=== PATIENT | female | born 1970 | race Caucasian/White ===

== ENCOUNTER 2018-06-10 07:43 | Inpatient (IN) | payer BC ==
[~2018-06-10 07:43] MED LIST: Buffered Lidocaine 0.9% SYRIN* 5 ML/SYR SYRINGE INTRADERM ONE
[2018-06-10] MEDS ORDERED: ceFAZolin 1 GM in Dextrose (*) 1 GM/50 ML BAG IVPB ONE (07:52)
[2018-06-10] MEDS ORDERED: ceFAZolin 2 GM PREMIX (*) 2 GM/50 ML BAG IVPB ONE (07:52)
[2018-06-10] MEDS ORDERED: Heparin VIAL(*) 5000 UNITS/ML VIAL (FIVE THOUSAND) ONE ×2 (07:52→15:30)
[2018-06-10] MEDS ORDERED: Bupivacaine 0.25% W/EPI* 10 ML SDV ONE ×2 (10:26→11:39)
[2018-06-10] MEDS ORDERED: Methylene Blue 0.5 %* 50 MG/10 ML AMP IV ONE (10:26)
[2018-06-10] MEDS ORDERED: Succinylcholine* 20 MG/ML 10 ML VIAL ONE ×2 (10:38→12:11)
[2018-06-10] MEDS ORDERED: Rocuronium* 10 MG/ML VIAL ONE ×2 (10:38→12:10)
[2018-06-10] MEDS ORDERED: Propofol* 10 MG/ML 20 ML BTL IV PUSH ONE (10:38)
[2018-06-10] MEDS ORDERED: fentaNYL* 50 MCG/ML 2 ML VIAL (100 MCG VIAL) ONE (10:38)
[2018-06-10] MEDS ORDERED: Lidocaine 2% PF * 5 ML VIAL ONE (10:38)
[2018-06-10] MEDS ORDERED: Midazolam* 1 MG/ML 2 ML VIAL (2 MG) ONE (10:55)
[2018-06-10] MEDS ORDERED: Dexamethasone IV* 4 MG/ML 1 ML (4 MG) ONE (11:05)
[2018-06-10] MEDS ORDERED: Acetaminophen TAB* 325 MG PO PRN (11:49)
[2018-06-10] MEDS ORDERED: DiMENhydriNATE IV* 50 MG/ML VIAL IV PUSH PRN (11:49)
[2018-06-10] MEDS ORDERED: Naloxone* 0.4 MG/ML 1 ML VIAL IV PRN (11:49)
[2018-06-10] MEDS ORDERED: HYDROmorphone INJ* 0.5 MG/0.5 ML SYRINGE ONE ×4 (11:51→15:30)
[2018-06-10] MEDS ORDERED: Ondansetron INJ* 2 MG/ML VIAL ONE ×2 (11:51→13:52)
[2018-06-10] MEDS ORDERED: Glycopyrrolate IV* 0.2 MG/ML 1 ML VIAL ONE (13:49)
[2018-06-10] MEDS ORDERED: Neostigmine Methylsulfate* 2 MG/2 ML SYRINGE ONE (13:49)
[2018-06-10] MEDS ORDERED: Acetaminophen ADULT LIQ* 650 MG/20.3 ML UDC PO PRN (13:56)
[2018-06-10] MEDS ORDERED: HYDROcodone/ACET. 7.5/325 LIQ* 15 ML UDC PO PRN (13:56)
[2018-06-10] MEDS ORDERED: diPHENhydraMINE IV* 50 MG/ML 1 ml VIAL (BENADRYL) SLOW PUSH PRN (13:56)
--- NOTE | 2018-06-10 13:56 | BRIEFOPN ---
Brief Operative Note - Surgery Procedures: Pre-OP Diagnoses: Clinically severe obesity Post-op Diagnosis: same Procedure: Laparoscopic Uzair an Y gastric bypass Surgeon: Jennifer Asst: Markus Anethesia: KOFFI EBL: minimal IVF: 1200cc LR Specimen: none Drains: none
[2018-06-10] MEDS ORDERED: DiMENhydriNATE IV* 50 MG/ML VIAL ONE (14:12)
[2018-06-10] MEDS: HYDROmorphone INJ* 0.5 MG/0.5 ML SYRINGE IV PRN ×2 (14:18→14:31)
[2018-06-10] MEDS: Heparin VIAL(*) 5000 UNITS/ML VIAL (FIVE THOUSAND) SUBCUT SCH ×2 (15:30→22:34)
[2018-06-10] MEDS: HYDROmorphone INJ* 2 MG/ML CARPUJECT SYRINGE IV PRN ×2 (15:30→20:02)
[2018-06-10] MEDS: Ondansetron INJ* 2 MG/ML VIAL IV PRN (16:40)
[2018-06-10] MEDS: Ketorolac INJ* 30 MG/ML 1 ML VIAL IV PRN ×2 (17:05→22:34)
[2018-06-10] MEDS: Famotidine IV* 10 MG/ML 2 ML (20 mg) IV SLOW PU SCH (20:02)
[2018-06-11] MEDS: HYDROmorphone INJ* 0.5 MG/0.5 ML SYRINGE IV PRN ×4 (03:04→21:15)
[2018-06-11] MEDS: Ketorolac INJ* 30 MG/ML 1 ML VIAL IV PRN ×3 (05:30→18:00)
[2018-06-11] MEDS: Heparin VIAL(*) 5000 UNITS/ML VIAL (FIVE THOUSAND) SUBCUT SCH ×3 (05:31→21:17)
--- NOTE | 2018-06-11 07:20 | OP ---
CC: [facility]; Dr. Irasema Wynne; Dr. Narinder Ramirez; Dr. Tucker Menendez; Dr. Ever Davis, Pulmonology in [place], [place], [address] OPERATIVE REPORT: DATE OF OPERATION: 06/10/18 DATE OF : 06/01/18 SURGEON: Elfego Rodriguez MD CASH SPECIALIST: BEN Evans ANESTHESIA: General anesthesia. PRE-OP DIAGNOSES: 1. Clinically severe obesity. 2. Hypertension. 3. Gastroesophageal reflux disease. 4. Congestive heart failure. 5. Joint pain. POST-OP DIAGNOSES: 1. Clinically severe obesity. 2. Hypertension. 3. Gastroesophageal reflux disease. 4. Congestive heart failure. 5. Joint pain. OPERATIVE PROCEDURE: Laparoscopic Uzair-en-Y gastric bypass. ESTIMATED BLOOD LOSS: Minimal blood loss. IV FLUIDS: 1200 cc of LR. SPECIMEN: None. DRAINS: None. DESCRIPTION OF PROCEDURE: The patient was identified in the preoperative area and discussed the case with her again and consent was signed for a Uzair-en-Y gastric bypass. The patient was marked and br ought to the operating room and placed on the operating table in supine position. Preoperative antib iotics were given. Sequential devices were placed on bilateral lower extremities. General anesthesia was induced. Snowden catheter was inserted. The patient's abdomen was prepped and draped in the angel dard surgical fashion and time-out was performed. Folds of the umbilicus were elevated anteriorly and a Veress needle inserted into the abdominal cavit y, which was then allowed to insufflate to a pressure of 15 mmHg. The patient tolerated the insuffla tion well. [place] between the xiphoid and umbilicus just left of midline, a 12-mm trocar was inserte d. Laparoscope was inserted through this and there was no evidence of injury from the trocar inserti on or from the Veress needle, which was then removed. Additional trocars were then placed in the fol lowing position: A 5-mm in the right upper quadrant for missed port, we were able to take adhesions of the omentum to the anterior abdominal wall at the left upper quadrant. Once these were taken down , a 5-mm and a 12-mm trocar were inserted at the left upper quadrant and an additional 12-mm trocar w as inserted in the right upper quadrant. Review of the stomach showed normal appearing stomach and liver, which was mildly enlarged. Attentio n was then turned towards the omentum, this was reflected superiorly and a transverse colon identifie d as was the ligament of Treitz, which was retracted and counted off at approximately 50 cm and the s mall intestine was divided with 60-mm moss JAY stapling device. The proximal limb was held and an ent erotomy made at this site. This would become the biliary pancreatic limb. Next, distal limb was taken and counted off approximately 100 cm. This would become the Uzair limb an d enterotomy was made at this site and a jejunojejunostomy was created in the standard fashion with a 60-mm moss JAY stapling device. The common defect was reapproximated with interrupted 2-0 silk sutur es and the mesenteric defect was closed similarly. Next, the attention was turned towards the upper abdomen, the patient was placed in a reverse [place] and a Myron retractor was inserted through a subxiphoid port and the liver was retracted a nteriorly to the right. An OG tube had been inserted before, this was removed and an Kortney tube inse rted. There was some nodularity to the stomach, but there were no contents that came out when the Ew ald tube was then backed up. A blunt dissection was carried out at the angle of His as we retracted the fat pad towards the right lower quadrant. Once this was dissected, we then turned our attention to the lesser curvature at cnochita roximately third crossing vessel at the site. A retrogastric window was made and 45-mm moss JAY stapl ing device was fired at this side. The gastric pouch was completed with additional 60-mm moss JAY sta plers. It appeared appropriate size and we placed the Kortney tube in and it appeared intact. There i s no evidence of bleeding. Next, the Uzair limb was then brought in opposition to the this gastric pouch with stay sutures with 2 -0 silk were utilized picking up the antimesenteric portion of the small bowel and suturing it the cu t staple line. Once this was in placed, I did see that the proximal Uzair limb showed mild ischemic c hanges, it was just darker color. We then placed a 60-mm moss JAY stapling device across this cut edg e making sure not to get towards the previous sutured areas. This did not appear to affect our antic ipated gastrojejunostomy. Next, over the Kortney tube, a gastrotomy was made and an enterotomy was similarly made with the cauter y and the two were mated with 30-mm moss JAY stapling device. We utilized 2.5 cm of the device. Next, the common defect was reapproximated with 3-0 PDS sutures starting at either side and tying the m in the middle. The Kortney tube easily passed through the anastomosis into the Uzari limb, which was then clamped distally and a methylene blue dye test was performed. There was no evidence of blue dy e despite it distending the Uzair limb and the stomach pouch. This dye was then removed. We then rakesh joão an imbricating 2-0 silk suture at the suture line of the gastrojejunostomy. We reviewed the post erior aspect, it appeared intact. There was no evidence of bleeding. The Myron retractor was re moved. We reviewed the Uzair limb down to the jejunojejunostomy, it appeared intact and lay in approp riate fashion. The jejunojejunostomy was also intact without evidence of ischemic changes or bleedin g. We then allowed the abdomen to collapse. Trocars were removed under direct vision and all skin i ncisions were reapproximated with 4-0 Monocryl subcuticular sutures followed by Steri-Strips and ster ile dressing. [id number]/[facility] #: [id number]
[2018-06-11] MEDS: Famotidine IV* 10 MG/ML 2 ML (20 mg) IV SLOW PU SCH ×2 (08:49→21:14)
[2018-06-11] MEDS: Flecainide TAB* 100 MG PO SCH ×2 (11:04→22:15)
--- NOTE | 2018-06-11 11:36 | RAD ---
INDICATION: 1 day postop from Uzair-en-Y gastric bypass. COMPARISON: No relevant prior exams available on the [facility] PACS. TECHNIQUE: In standing position the patient swallowed several sips of Gastrografin under fluoroscopic observation. 0.4 minutes fluoroscopy. REPORT AND IMPRESSION: #. Swallowed Gastrografin mildly distends the esophagus and moves to and fro within the esophagus. Delayed limited propagation through the gastric pouch to the jejunal limb. On this basis no further oral contrast was administered. No contrast extravasation at level of the proximal anastomosis evident however limited propagation of contrast through the anastomosis limits assessment. Consider postoperative edema at the esophagogastric junction and gastrojejunal anastomosis as well as postoperative gastric jejunal ileus. Stat results conveyed to Dr. Rodriguez at 0955 hours. CPT II Codes: G9500
--- NOTE | 2018-06-11 11:53 | PN ---
Progress Note - Progress Note Date of Service: 06/11/18 SOAP: Subjective: Patient seen and examined. feeling better this morning. She does feel that her mouth is dry area her urine output has been minimal. She does have some upper abdominal pain. She denies any nausea or vomiting. Objective: Temp Pulse Resp BP Pulse Ox 98.2 F 90 18 119/73 98 06/11/18 08:06 06/11/18 08:06 06/11/18 11:05 06/11/18 08:06 06/11/18 08:06 Intake & Output 06/10/18 06/11/18 06/11/18 22:59 06:59 14:59 Intake Total 0 1965 Output Total 50 275 200 Balance -50 1690 -200 Alert and oriented 3, in no apparent distress lungs clear to auscultation bilaterally abdomen: Soft, nondistended, tender incisions. No rebound tenderness. Mild ecchymosis. No erythema. Extremities: mild skin changes consistent with venous stasis disease to the bilateral lower legs. No calf tenderness. Upper GI: Limited study with almost no passage of contrast through the EG junction Assessment: postoperative day 1 from laparoscopic Uzair-en-Y gastric bypass Plan: ice chips and oral meds. Pain medication. Out of bed. Incentive spirometer. Strict I's and O's
[2018-06-11] MEDS: D5W 1/2 NS KCl 20 Meq 1000 ML* 1,000 ML IV SCH ×2 (14:07→22:17)
[2018-06-11] MEDS: Ondansetron INJ* 2 MG/ML VIAL IV PRN ×2 (14:18→21:12)
[2018-06-12] MEDS: Heparin VIAL(*) 5000 UNITS/ML VIAL (FIVE THOUSAND) SUBCUT SCH ×2 (06:04→13:40)
[2018-06-12] MEDS: D5W 1/2 NS KCl 20 Meq 1000 ML* 1,000 ML IV SCH (06:07)
[2018-06-12] MEDS: Ketorolac INJ* 30 MG/ML 1 ML VIAL IV PRN (08:20)
[2018-06-12] MEDS: Flecainide TAB* 100 MG PO SCH (08:21)
[2018-06-12] MEDS: Famotidine IV* 10 MG/ML 2 ML (20 mg) IV SLOW PU SCH (08:21)
[2018-06-12 12:01] VITALS: BP 136/83
--- NOTE | 2018-06-12 17:15 | DS ---
CC: Dr. Wynne; [facility] * DISCHARGE SUMMARY: DATE OF ADMISSION: DATE OF DISCHARGE: 06/12/18 HISTORY OF PRESENT ILLNESS: Ms. Turcios is a 48-year-old female worked up as an outpatient with clinically severe obesity, gastroesophageal reflux disease, hypertension who presented on same day of surgery and underwent a laparoscopic Uzair- en-Y gastric bypass procedure. Please see operative report for separate details. In the postoperative period, she was transferred to PACU and then onto short- stay surgical unit where she was maintained on IV fluids and n.p.o. status. On postoperative day 1, the patient underwent upper GI study, which did show very slow passage through the GE junction. The patient was evaluated and slowly started on bariatric clears. By postoperative day 2, the patient was ready for discharge. PHYSICAL EXAMINATION: Physical exam was performed on the day of discharge. The patient was afebrile. Vital signs were stable. Urine output good. Alert and oriented x3, in no apparent distress. Head, Ears, Eyes, Nose, and Throat: Normocephalic and atraumatic. Sclerae anicteric. Mucous membranes are moist. Lungs: Clear to auscultation bilaterally. Abdomen: Soft, obese, nontender. Dressings removed. Steri-Strips in place. Ecchymosis throughout the mid abdomen with no erythema, minimal incisional tenderness. Extremities: At baseline for this patient with appearance of venous stasis disease without calf tenderness. IMPRESSION: Postoperative day 2, Uzair-en-y gastric bypass. PLAN: Discharge home. Follow up in [facility] next week. We will restart her blood thinners. She has already started on her flecainide. She will hold both of her blood pressure medications , one of which is torsemide. She will continue the proton pump inhibitor and she has a prescription for pain medication at home. [id number]/[facility] #: [id number] [facility] SYSTEMRebekah
== END 2018-06-12 13:20 | disposition home or self-care (01) | DRG 403 ==
LOC: AA 07:43 → SSU 15:32
PROVIDERS: ADMIT Surgery; ATTEND Surgery
PROC: 0D164ZA Bypass Stomach to Jejunum, Percutaneous Endoscopic Approach (ICD-10-PCS; principal; 2018-06-10 09:15)
DX: E66.01 Morbid (severe) obesity due to excess calories (principal); Z68.42 Body mass index [BMI] 45.0-49.9, adult; M19.90 Unspecified osteoarthritis, unspecified site; G47.33 Obstructive sleep apnea (adult) (pediatric); I73.9 Peripheral vascular disease, unspecified; I89.0 Lymphedema, not elsewhere classified; I48.0 Paroxysmal atrial fibrillation; N80.9 Endometriosis, unspecified; I50.9 Heart failure, unspecified; I11.0 Hypertensive heart disease with heart failure; K21.0 Gastro-esophageal reflux disease with esophagitis; M25.50 Pain in unspecified joint; J45.909 Unspecified asthma, uncomplicated; Z83.3 Family history of diabetes mellitus; Z82.49 Family history of ischemic heart disease and other diseases of the circulatory system; Z80.0 Family history of malignant neoplasm of digestive organs; Z83.49 Family history of other endocrine, nutritional and metabolic diseases; Z72.89 Other problems related to lifestyle; Z82.0 Family history of epilepsy and other diseases of the nervous system
CPT/HCPCS: 43644; 74246; A9270-GY; C1776; J0330; J0690; J1100; J1170; J1240; J1644; J1885; J2250; J2405; J2704; J3010